=== PATIENT | female | born 1990 | race Caucasian/White ===

== ENCOUNTER 2021-04-09 21:02 | Emergency (ER) | payer MEDICAID, OTHER ==
[~2021-04-09] VITALS: Ht 154.9 cm; Wt 63.5 kg
[2021-04-09 21:02] VITALS: BP 105/66
--- NOTE | 2021-04-09 21:10 | NUR ---
PT CALLED TO TRIAGE, NO RESPONSE
--- NOTE | 2021-04-09 21:20 | NUR ---
PT CALLED TO TRIAGE, NO RESPONSE
--- NOTE | 2021-04-09 21:30 | NUR ---
PATIENT LEFT WITHOUT BEING SEEN
== END 2021-04-09 21:30 | disposition left against medical advice (07) ==
LOC: ER 21:02
DX: Z53.21 Procedure and treatment not carried out due to patient leaving prior to being seen by health care provider (principal)